=== PATIENT | male | born 1945 | race Caucasian/White ===

== ENCOUNTER → 2018-02-21 | Outpatient (CLI) | payer OTHER ==
--- NOTE | 2018-02-21 09:34 | US ---
EXAMINATION TYPE: US abdomen complete DATE OF EXAM: 02/21/2018 COMPARISON: NONE CLINICAL HISTORY: I71.4 ABDOMINAL AORTIC ANEURYSM. EXAM MEASUREMENTS: Liver Length: 17.0 cm Gallbladder Wall: 0.2 cm CBD: 0.5 cm Spleen: 8.2 cm Right Kidney: 10.7 x 5.0 x 4.8 cm Left Kidney: 10.6 x 5.2 x 5.9 cm Aorta prox: 2.1cm Aorta mid: 2.3cm Aorta dist: 4.5 x 4.3 x4.2cm AAA Bifurcation: obscured by bowel gas Patient is of large body habitus with large abdomen. Pancreas: Obscured by bowel gas Liver: Increased attenuation, decreased visualization of vessels suggestive of fatty infiltrate, upp er limits of normal in size Gallbladder: wnl Evidence for sonographic Fuller's sign: CBD: wnl Spleen: wnl Right Kidney: No hydronephrosis or masses seen Left Kidney: No hydronephrosis or masses seen Upper IVC: wnl Abd Aorta: AAA measuring 4.5cm The liver is homogenous. The intrahepatic portion of the IVC and proximal abdominal aorta are within normal limits. No aortic aneurysm measuring 4.5 cm. There is no evidence of cholelithiasis. Common bile duct is unremarkable. The visualized portions of the pancreas are homogenous. The spleen is u nremarkable. Kidneys are symmetric and free of hydronephrosis. No renal lesions are seen. IMPRESSION: 1. Abdominal aortic aneurysm as noted. No discrete complicating factor at this time.
== END | disposition home or self-care (01) ==
LOC: RADUSWWP 08:19
DX: I71.4 Abdominal aortic aneurysm, without rupture (principal)
CPT/HCPCS: 76700

== ENCOUNTER 2018-05-10 15:26 | Inpatient (IN) | payer OTHER, MEDICARE ==
[2018-05-10] MEDS ORDERED: NITROGLYCERIN SL TABS 0.4 MG TAB SUBLINGUAL PRN ×2 (15:39→18:04)
[2018-05-10] MEDS ORDERED: HEPARIN SODIUM,PORCINE 5,000 UNIT/ML 1 ML VIAL IV STA (15:39)
[2018-05-10] MEDS ORDERED: SODIUM CHLORIDE 0.9% 500 ML IV STA (15:39)
[2018-05-10] MEDS ORDERED: ASPIRIN 81 MG PO STA (15:39)
[2018-05-10] MEDS ORDERED: ATORVASTATIN 80 MG TAB PO STA (15:42)
--- NOTE | 2018-05-10 15:48 | ED ---
Chest Pain HPI - General Chief Complaint: Chest Pain Stated Complaint: CHEST PAIN Time Seen by Provider: 05/10/18 15:36 Source: patient, EMS Mode of arrival: EMS Limitations: no limitations - History of Present Illness Initial Comments: 72 years old male was mowing his lawn today chest pain started about 2-1/2 [place] he still has a chest pain he saying there is a 3/10, he denies any shortness of breath no fever no chills he is not coughing any phlegm chest pain started after he was done mowing his lawn he said he is a type II diabetic he denies any history of heart disease prior. - Related Data Home Medications Medication Instructions Recorded Confirmed Aspirin EC [Ecotrin] 81 mg PO DAILY 07/16/15 07/16/15 Previous Rx's Medication Instructions Recorded Naproxen Sodium 550 mg PO Q12HR #30 tab 05/11/15 Aspirin 325 mg PO DAILY #30 tab 07/19/15 HYDROcodone/APAP 7.5-325MG [[place] 1 - 2 each PO Q6HR PRN #90 tab 07/19/15 7.5-325] Allergies Allergy/AdvReac Type Severity Reaction Status Date / Time No Known Allergies Allergy Verified 07/16/15 12:42 Review of Systems ROS Statement: Those systems with pertinent positive or pertinent negative responses have been documented in the HPI. ROS Other: All systems not noted in ROS Statement are negative. EKG Findings - EKG Comments: EKG Findings:: EKG is normal sinus ventricular rate is 75 TN interval is an 58 QRS duration is 84 QT/QTc is 390/[address] depression in lead 2 and 3 as well as aVF noticed Elisa in V1 and V2 V3 V4 and V5 significant findings are in V1 and V2 and V3 Past Medical History Past Medical History: Diabetes Mellitus Additional Past Medical History / Comment(s): Possible Type II DM, aortic aneursym, 4.5 cm. History of Any Multi-Drug Resistant Organisms: None Reported Past Surgical History: Hernia Repair Past Psychological History: No Psychological Hx Reported Smoking Status: Current every day smoker Past Alcohol Use History: None Reported Past Drug Use History: None Reported General Exam - General Exam Comments Initial Comments: General: The patient is awake and alert, in no distress, and does not appear acutely ill. Skin: Skin is warm and dry and no rashes or lesions are noted. Eye: Pupils are equal, round and reactive to light, extra-ocular movements are intact; there is normal conjunctiva bilaterally. Ears, nose, mouth and throat: There are moist mucous membranes and no oral lesions. Neck: The neck is supple, there is no tenderness or JVD. Cardiovascular: There is a regular rate and rhythm. No murmur, rub or gallop is appreciated. Respiratory: To auscultation bilateral, decrease breath sounds Gastrointestinal: Soft, non-distended, non-tender abdomen without masses or organomegaly noted. There is no rebound or guarding present. Bowel sounds are unremarkable. Back: There is no tenderness to palpation in the midline. There is no obvious deformity. Musculoskeletal: Normal ROM, no tenderness, There is no pedal edema. There is no calf tenderness or swelling. No cords were appreciated. Neurological: CN II-XII intact, Cranial nerves III through XII are intact. There are no obvious motor or sensory deficits. Coordination appears grossly intact. Speech is normal. Psychiatric: Cooperative, appropriate mood & affect, normal judgment. Limitations: no limitations Course Vital Signs 05/10/18 05/10/18 15:27 15:39 Temperature 97.5 F L Pulse Rate 76 81 Respiratory 18 18 Rate Blood Pressure 90/56 102/56 O2 Sat by Pulse 97 96 Oximetry Patient will be admitted to Dr. Gurrola service cardiology is on board, he just lateral to the Ditcher Operator Critical Care Time Total Critical Care Time: 30 Critical Care Time: EKG was done within minutes of his arrival, I have seen EKG one now transmitted by EMS, that EKG also had a STEMI consistent changes patient was medicated after speaking with the Dr. Ruddy nair in the other medications patient is hemodynamically stable and he be heading to Ditcher Operator soon as a [address] Disposition Clinical Impression: STEMI (ST elevation myocardial infarction) Disposition: ADMITTED IP TO THIS HOSP Condition: Good Referrals: Rudolph Ceja MD [Primary Care Provider] - 1-2 days
[2018-05-10] MEDS ORDERED: ACETAMINOPHEN TAB 325 MG TAB PO PRN (15:51)
[2018-05-10] MEDS ORDERED: MORPHINE SULFATE 2 MG/ML SYRINGE IV PRN (15:51)
[2018-05-10] MEDS ORDERED: NALOXONE 0.4 MG/ML 1 ML VIAL IV PRN (15:51)
[2018-05-10 15:56] LABS: HCT 47.5 % (39.0-53.0); HGB 16.1 gm/dL (13.0-17.5); MCH 30.6 pg (25.0-35.0); MCHC 33.8 g/dL (31.0-37.0); MCV 90.6 fL (80.0-100.0); Mean Platelet Volume 7.2; Platelet Count 256 k/uL (150-450); RBC 5.24 m/uL (4.30-5.90); RDW 13.1 % (11.5-15.5); WBC 14.8 k/uL (3.8-10.6)
[2018-05-10] MEDS ORDERED: HYDROcodone/APAP 7.5-325MG 1 EACH TAB PO PRN (15:57)
--- NOTE | 2018-05-10 15:58 | XR ---
EXAMINATION TYPE: XR chest 1V portable DATE OF EXAM: 05/10/2018 COMPARISON: NONE HISTORY: Chest pain today. TECHNIQUE: Single AP portable frontal upright view of the chest is obtained. FINDINGS: There are reticular interstitial changes seen bilaterally. There is more focal opacity in the left lung base. No large pleural effusion or pneumothorax is seen. Somewhat low lung volumes are present. The cardiac silhouette size is within normal limits. The osseous structures are intact. IMPRESSION: Favor chronic reticular interstitial changes over edema. Developing atelectasis and/or i nfiltrate left lung base is felt present. Correlation with old outside x-ray would be beneficial. Con benzene washer progress two-view chest x-ray.
[2018-05-10] MEDS ORDERED: LIDOCAINE 1% INJ 10MG/ML (20 ML MDV) ONE (16:01)
[2018-05-10 16:02] LABS: Albumin 3.8 g/dL (3.5-5.0); Calcium 9.2 mg/dL (8.4-10.2); Potassium 4.3 mmol/L (3.5-5.1); Total Bilirubin 0.5 mg/dL (0.2-1.3); Total Protein 6.4 g/dL (6.3-8.2)
[2018-05-10] MEDS ORDERED: LIDOCAINE 1% INJ 10MG/ML (20 ML MDV) SQ ONE (16:04)
--- NOTE | 2018-05-10 16:04 | P.CRDCN ---
History of Present Illness Consult date: 05/10/18 Requesting physician: Carline Denton Reason for Consult (text): Anterior lateral STEMI Chief complaint: Chest pain History of present illness: This is a pleasant 72-year-old gentleman with history of nicotine dependence, type 2 diabetes, not currently on medication, hyperlipidemia, not currently on medication, denies any hypertension, presented to the hospital around 3:30 in the afternoon today. He states that 2 hours before his arrival here he developed severe midsternal chest pressure and heaviness with associated shortness of breath. The patient was given a sublingual nitroglycerin on arrival here with some relief of his discomfort, he was still rating it as 6 at the time of my arrival. His initial EKG showed a normal sinus rhythm with ST elevation in the anterior lateral leads and noted ST depression in the inferior leads. Patient was given aspirin, Lipitor 80, and a bolus of IV heparin. He was advised to undergo cardiac catheterization emergently, the risks and the benefits were explained to him in detail and he was willing to proceed. He stated that he has no ALLERGIES. His daughter is present. Chest x-ray was performed in the emergency room, patient taken directly to the cardiac catheterization lab. Past Medical History Past Medical History: Diabetes Mellitus Additional Past Medical History / Comment(s): Possible Type II DM, aortic aneursym, 4.5 cm. History of Any Multi-Drug Resistant Organisms: None Reported Past Surgical History: Hernia Repair Past Psychological History: No Psychological Hx Reported Smoking Status: Current every day smoker Past Alcohol Use History: None Reported Past Drug Use History: None Reported Medications and Allergies Home Medications Medication Instructions Recorded Confirmed Type Naproxen Sodium 550 mg PO Q12HR #30 tab 05/11/15 07/16/15 Rx Aspirin EC [Ecotrin] 81 mg PO DAILY 07/16/15 07/16/15 History Aspirin 325 mg PO DAILY #30 tab 07/19/15 Rx HYDROcodone/APAP 7.5-325MG [[place] 1 - 2 each PO Q6HR PRN #90 tab 07/19/15 Rx 7.5-325] Allergies Allergy/AdvReac Type Severity Reaction Status Date / Time No Known Allergies Allergy Verified 07/16/15 12:42 Physical Exam Vitals: Vital Signs Temp Pulse Resp BP Pulse Ox 05/10/18 15:39 81 18 102/56 96 05/10/18 15:27 97.5 F L 76 18 90/56 97 Intake and Output 05/10/18 05/10/18 05/10/18 06:59 14:59 22:59 Other: Weight 90.718 kg PHYSICAL EXAMINATION: GENERAL: 72-year-old gentleman complaining of moderate to severe midsternal chest discomfort HEENT: Head is atraumatic, normocephalic. Pupils equal, round. Sclera anicteric. Conjunctiva are clear. Mucous membranes of the mouth are moist. Neck is supple. There is no elevated jugular venous pressure.] bruit is heard. HEART EXAMINATION: Heart S1 and S2 with soft systolic murmur is heard CHEST EXAMINATION: Lungs reveal bibasilar crackles. ABDOMEN: Soft, evidence of umbilical hernia, nontender. Bowel sounds are heard. No organomegaly noted. EXTREMITIES:1+ peripheral pulses with no evidence of peripheral edema and no calf tenderness noted. NEUROLOGIC patient is awake, alert and oriented -3. . Results 05/10/18 15:41 CBC 05/10/18 Range/Units 15:41 WBC 14.8 H (3.8-10.6) k/uL RBC 5.24 (4.30-5.90) m/uL Hgb 16.1 (13.0-17.5) gm/dL Hct 47.5 (39.0-53.0) % Plt Count 256 (150-450) k/uL Current Medications Generic Name Dose Route Start Last Admin Trade Name Freq PRN Reason Stop Dose Admin Heparin Sodium/Sodium Chloride 500 mls @ 20 mls/hr 05/10/18 15:45 25,000 unit/ Sodium Chloride IV .Q24H KELSEA Protocol Sodium Chloride 500 mls @ 999 mls/hr 05/10/18 15:39 05/10/18 15:44 Saline 0.9% IV 05/10/18 16:09 999 mls/hr .Q31M STA Administration Nitroglycerin 0.4 mg 05/10/18 15:39 Nitrostat SUBLINGUAL Q5M PRN Chest Pain Intake and Output 05/10/18 05/10/18 05/10/18 06:59 14:59 22:59 Other: Weight 90.718 kg Patient Weight 05/11/18 06:59 Weight 90.718 kg 05/10/18 15:41 EKG Interpretations (text) EKG shows normal sinus rhythm with anterior lateral ST elevation and inferior ST depression. Assessment and Plan Plan: Assessment and plan #[address] elevation myocardial infarction #2 type 2 diabetes, not currently on medications at home #3 nicotine dependence #4 hyperlipidemia, untreated Plan Patient was advised to go emergently, directly to the cardiac catheterization lab, the risks and the benefits were explained to the patient in detail. A chest x-ray was performed just prior to departure from the emergency room to the Cash Application Clerk. Patient was given aspirin, Lipitor 80, and a bolus of IV heparin. Further recommendations will be based on these findings and the patient's clinical course. DNP note has been reviewed, I agree with a documented findings and plan of care. Patient was seen and examined.
[2018-05-10] MEDS ORDERED: fentaNYL (PF) 50 MCG/ML 2 ML AMP ONE (16:06)
[2018-05-10] MEDS ORDERED: MIDAZOLAM 2 MG/2 ML VIAL ONE (16:06)
[2018-05-10] MEDS ORDERED: fentaNYL (PF) 50 MCG/ML 2 ML AMP IV ONE (16:09)
[2018-05-10] MEDS ORDERED: MIDAZOLAM 2 MG/2 ML VIAL IV ONE (16:09)
[2018-05-10] MEDS ORDERED: SODIUM CHLORIDE 0.9% 500 ML IV ONE (16:09)
[2018-05-10 16:10] LABS: Prothrombin Time 9.8 sec (9.0-12.0)
[2018-05-10 16:16] LABS: Partial Thromboplastin Time 20.8 sec (22.0-30.0)
[2018-05-10 16:18] LABS: Creatine Kinase MB 0.9 ng/mL (0.0-2.4)
[2018-05-10 16:19] LABS: Troponin I 0.148 ng/mL (0.000-0.034)
[2018-05-10] MEDS ORDERED: BIVALIRUDIN BOLUS 250 MG/50 ML IV ONE (16:29)
[2018-05-10] MEDS ORDERED: BIVALIRUDIN 250 MG in SODIUM CHLORIDE 0.9% 50 ML IV ONE ×5 (16:30→17:41)
[2018-05-10] MEDS ORDERED: NOREPINEPHRIN 4 MG-0.9% NS PMX 4 MG/250 ML ML IV ONE (16:41)
[2018-05-10] MEDS ORDERED: IOPAMIDOL-370 125ML BTL INJ ONE (16:56)
[2018-05-10] MEDS ORDERED: NITROGLYCERIN 1000MCG/10ML SYRINGE INTRACORON ONE (17:04)
[2018-05-10] MEDS ORDERED: IOPAMIDOL-370 100ML BTL INJ ONE ×3 (17:10→17:58)
[2018-05-10] MEDS ORDERED: TIROFIBAN 12.5MG-0.9% NS PMX 250 ML BAG IV ONE (17:40)
[2018-05-10] MEDS ORDERED: TICAGRELOR 90 MG TAB ONE (17:55)
[2018-05-10] MEDS ORDERED: TICAGRELOR 90 MG TAB PO ONE (17:58)
[2018-05-10] MEDS ORDERED: HEPARIN SODIUM 1,000 UN/ML (10ML VL) ONE (18:03)
[2018-05-10] MEDS ORDERED: ZOLPIDEM 5 MG TAB PO PRN (18:04)
[2018-05-10] MEDS ORDERED: MAG HYDROX/AL HYDROX/SIMETH 30 ML CUP PO PRN (18:04)
[2018-05-10] MEDS ORDERED: RX INFO: IV CONTRAST WAS GIVEN 1 EACH MISC MISCELLANE PRN (18:04)
[2018-05-10] MEDS ORDERED: ATROPINE SULFATE 0.1 MG/ML 10ML SYRINGE IV PRN (18:04)
[2018-05-10] MEDS ORDERED: SODIUM CHLORIDE 0.9% 1,000 ML IV SCH (18:15)
[2018-05-10 18:30] LABS: Glucose,Whole Blood 233 mg/dL (75-99)
[2018-05-10 19:05] VITALS: BMI 34.9
--- NOTE | 2018-05-10 20:04 | CC ---
CARDIAC CATHETERIZATION REPORT INDICATION: Acute anterior wall myocardial infarction. PROCEDURE NOTE: After obtaining informed consent, left heart catheterization, coronary angiogram are performed via the right femoral artery using standard Adolfo catheters. The patient received moderate conscious sedation and total sedation time was 24 minutes. We went thru multiple catheters to engage the right coronary artery including the right Adolfo. Kateryna and Alexys posterior and we were unable to engage the right. FINDINGS: HEMODYNAMICS: Left ventricular end-diastolic pressure is 18 mm. There is no significant gradient across the aortic valve. LEFT VENTRICULOGRAM: Left ventriculogram is not performed. ANGIOGRAPHIC DATA: 1. LEFT MAIN CORONARY ARTERY : Left main coronary artery is a normal-sized vessel and is free of stenosis. Divides into left anterior descending coronary artery and circumflex coronary artery. 2. CIRCUMFLEX CORONARY ARTERY: Gives off a large caliber OM branch that is free of stenosis. 3. LEFT ANTERIOR DESCENDING CORONARY ARTERY: The LAD has stenosis in the ostial portion which is 99% stenosis. CONCLUSIONS: 99% stenosis involving the ostial portion of the left anterior descending coronary artery. The patient's chest discomfort has improved since coming to the poultry hatchery laborer. However, still has subtle ST elevation in V1 and V2. V3 change has improved. I talked to patient at length about his treatment options including sending him to emergent bypass surgery with the attendant risks and benefits versus attempting high risk angioplasty of the ostial LAD. Dr. Zelaya, the on-call administrative support technician evaluated the angiographic data. The patient wanted us to attempt angioplasty of the ostial LAD and if unsuccessful, will proceed with bypass surgery. The right coronary artery will be engaged by Dr. Zelaya at the end of the angioplasty. MMODL / IJN: [id number] /
[2018-05-10] MEDS: HEPARIN SOD,PORK IN 0.45% NACL 25,000 UNIT in 0.45% NACL 1 500ML.BAG IV SCH (20:55)
[2018-05-10 21:02] LABS: Glucose,Whole Blood 185 mg/dL (75-99)
[2018-05-10] MEDS: TICAGRELOR 90 MG TAB PO SCH (21:28)
[2018-05-10] MEDS: ATORVASTATIN 80 MG TAB PO SCH (21:28)
[2018-05-10] MEDS: METOPROLOL TARTRATE 25 MG TAB PO SCH (21:28)
[2018-05-10] MEDS: INSULIN ASPART 100 UNIT/ML 1 ML 10 ML VIAL SQ SCH (21:31)
[2018-05-11] MEDS: NAPROXEN 250 MG TAB PO SCH ×3 (00:11→21:31)
[2018-05-11] MEDS ORDERED: NICOTINE 21MG/24HR PATCH TRANSDERM STA (01:56)
[2018-05-11 01:57] LABS: Hemoglobin A1C 7.6 % (4.0-6.0)
[2018-05-11] MEDS ORDERED: ALPRAZolam 0.25 MG TAB PO STA (01:57)
[2018-05-11 07:31] LABS: Glucose,Whole Blood 160 mg/dL (75-99)
[2018-05-11 07:44] LABS: HCT 47.1 % (39.0-53.0); HGB 16.1 gm/dL (13.0-17.5); MCH 31.2 pg (25.0-35.0); MCHC 34.3 g/dL (31.0-37.0); MCV 90.9 fL (80.0-100.0); Mean Platelet Volume 6.9; Platelet Count 224 k/uL (150-450); RBC 5.18 m/uL (4.30-5.90); RDW 13.3 % (11.5-15.5); WBC 17.7 k/uL (3.8-10.6)
[2018-05-11 10:16] LABS: Anion Gap 10 mmol/L; Blood Urea Nitrogen 14 mg/dL (9-20); Calcium 8.7 mg/dL (8.4-10.2); Carbon Dioxide 21 mmol/L (22-30); Chloride 106 mmol/L (98-107); Glucose 140 mg/dL (74-99); Phosphorus 3.3 mg/dL (2.5-4.5); Potassium 4.3 mmol/L (3.5-5.1); Sodium 137 mmol/L (137-145)
--- NOTE | 2018-05-11 10:55 | ECHOF ---
Referral Reason:stemi MEASUREMENTS -------- HEIGHT: 165.1 cm WEIGHT: 90.7 kg BP: IVSd: 1.5 cm (0.6 - 1.1) LVIDd: 5.2 cm (3.9 - 5.3) LVPWd: 1.4 cm (0.6 - 1.1) IVSs: 1.6 cm LVIDs: 3.6 cm LVPWs: 2.1 cm LAESV Index (A-L): 23.10 ml/m Ao Diam: 3.4 cm (2.0 - 3.7) LA Diam: 3.6 cm (2.7 - 3.8) MV E Yusef: 0.52 m/s MV DecT: 217 ms MV A Yusef: 0.67 m/s MV E/A Ratio: 0.78 RAP: 5.00 mmHg RVSP: 9.13 mmHg FINDINGS -------- Sinus rhythm. This was a techncally difficult study with suboptimal views, , Lumason utilized for enhancement of im ages. The left ventricular size is normal. There is mild concentric left ventricular hypertrophy. Overa ll left ventricular systolic function is moderate-severely impaired with, an EF between 30 - 35 %. Mid anterior LV wall motion is hypokinetic. Apical anterior LV wall motion is akinetic. Apical inferior LV wall motion is akinetic. Anterseptal Hypokinesis. Septal Hypokinesis [place] Hypokines is. The right ventricle is normal in size. The left atrial size is normal. The right atrial size is normal. 5.0mg OF Lumason UTLIZED: 2 OR MORE WALL SEGMENTS NOT VISUALIZED. The aortic valve was not well visualized. Mild mitral regurgitation is present. Mild tricuspid regurgitation present. Right ventricular systolic pressure is normal at < 35 mmHg. There is no evidence of pulmonary hypertension. The pulmonic valve was not well visualized. The aortic root size is normal. There is no pericardial effusion. CONCLUSIONS -------- 1. This was a techncally difficult study with suboptimal views, , Lumason utilized for enhancement of images. 2. The left ventricular size is normal. 3. There is mild concentric left ventricular hypertrophy. 4. Overall left ventricular systolic function is moderate-severely impaired with, an EF between 30 - 35 %. 5. Anterseptal Hypokinesis 6. Septal Hypokinesis 7. [place] Hypokinesis. 8. The right ventricle is normal in size. 9. The left atrial size is normal. 10. The right atrial size is normal. 11. 5.0mg OF Lumason UTLIZED: 2 OR MORE WALL SEGMENTS NOT VISUALIZED. 12. The aortic valve was not well visualized. 13. Mild mitral regurgitation is present. 14. Mild tricuspid regurgitation present. 15. Right ventricular systolic pressure is normal at < 35 mmHg. 16. There is no evidence of pulmonary hypertension. 17. The pulmonic valve was not well visualized. 18. The aortic root size is normal. 19. There is no pericardial effusion. PROGRAMMER DEVELOPER: Ermelinda Lopez RDCS
[2018-05-11 11:49] LABS: Glucose,Whole Blood 150 mg/dL (75-99)
[2018-05-11] MEDS ORDERED: IPRATROPIUM-ALBUTEROL 3 ML NEB INHALATION PRN (12:05)
--- NOTE | 2018-05-11 12:05 | P.CNPUL ---
History of Present Illness Consult date: 05/11/18 Requesting physician: Lina Gurrola Reason for consult: other (Acute ST elevation myocardial infarction) Chief complaint: Chest pain History of present illness: This is a 72-year-old white male with history of type 2 diabetes, smoker, but no documented history of COPD, positive family history of coronary artery disease, history of hypercholesterolemia, patient presented to the ER with acute substernal chest pain while he was mowing his lawn. EMS picked up the patient, and on arrival the patient was found to have acute ST elevation myocardial infarction. Patient was taken to the mini lab operator, underwent PTCA, with excellent results, admitted after cardiac cath to the ICU, hemodynamically stable, asymptomatic, no pain, no shortness of breath, no cough, no wheezing, I was asked to see the patient on consultation. Patient has been a heavy smoker over the years, presently on nicotine patch. And presently asymptomatic. Denies any headache no blurred vision no dizziness. No chest pain no cough no wheezing no nausea no vomiting no abdominal pain no melena no hematemesis is no dysuria and no frequency no urgency. Review of Systems 14 point review of systems were obtained, please refer to pertinent positives in HPI, otherwise remaining systems are negative. Past Medical History Past Medical History: Diabetes Mellitus, Hyperlipidemia Additional Past Medical History / Comment(s): Possible Type II DM, aortic aneursym, 4.5 cm. History of Any Multi-Drug Resistant Organisms: None Reported Past Surgical History: Hernia Repair, Orthopedic Surgery Additional Past Surgical History / Comment(s): 2015 knee sx Past Anesthesia/Blood Transfusion Reactions: No Reported Reaction Past Psychological History: No Psychological Hx Reported Smoking Status: Current every day smoker Past Alcohol Use History: None Reported Past Drug Use History: None Reported - Past Family History Daughter(s) Family Medical History: No Reported History Medications and Allergies Home Medications Medication Instructions Recorded Confirmed Type Aspirin EC [Ecotrin] 81 mg PO DAILY 07/16/15 05/10/18 History Atorvastatin [Lipitor] 20 mg PO HS 05/10/18 05/10/18 History Allergies Allergy/AdvReac Type Severity Reaction Status Date / Time No Known Allergies Allergy Verified 05/10/18 19:22 Physical Exam Vitals: Vital Signs Temp Pulse Resp BP Pulse Ox 05/11/18 02:00 70 24 101/60 96 05/11/18 01:00 77 22 99/62 97 06/27/18 00:00 97.5 F L 79 24 95/61 94 L 05/10/18 23:00 78 25 H 97/54 95 05/10/18 22:00 78 20 101/63 97 05/10/18 21:30 81 23 101/63 96 05/10/18 21:00 82 22 97/62 97 05/10/18 20:30 83 16 97 05/10/18 20:00 97.9 F 81 17 109/59 95 05/10/18 19:30 88 22 124/74 97 05/10/18 19:00 81 19 114/64 95 05/10/18 18:54 97.7 F 14 97 05/10/18 18:50 84 16 115/68 98 05/10/18 18:40 97.7 F 84 25 H 115/68 97 05/10/18 15:39 81 18 102/56 96 05/10/18 15:27 97.5 F L 76 18 90/56 97 Intake and Output 05/10/18 05/11/18 05/11/18 22:59 06:59 14:59 Intake Total 742.12 390 Output Total 450 Balance 292.12 390 Intake: IV 682.12 300 Sodium Chloride 0.9% 1, 300 300 000 ml @ 75 mls/hr IV . [id number] [facility] Rx#:[id number] Oral 60 90 Output: Urine 450 Other: Voiding Method Urinal Weight 95.4 kg Physical Exam revealed a 72-year-old white male in no distress. Head: Atraumatic, normocephalic. HEENT:[Neck is supple.] [No neck masses.] [No thyromegaly.] [No JVD.] Chest: [Clear throughout, no crackles, no rhonchi, no wheezes.] Cardiac Exam: [Normal S1 and S2, no S3 gallop, no murmur.] Abdomen: [Soft, nontender, no megaly, no rebound, no guarding, normal bowel sounds.] Extremities: [No clubbing, no edema, no cyanosis.] Neurological Exam: [No focal neurologic deficit. Psychiatric: Normal mood affect and mental status examination. Lymphatics: No lymphadenopathy.] Results - Laboratory Findings CBC and BMP: 05/10/18 15:41 05/10/18 15:41 PT/INR, D-dimer PT 9.8 sec (9.0-12.0) 05/10/18 15:41 INR 1.0 (<1.2) 05/10/18 15:41 Abnormal lab findings: Abnormal Labs 05/10/18 05/10/18 05/10/18 15:41 15:41 15:41 WBC 14.8 H APTT Glucose 201 H POC Glucose (mg/dL) Hemoglobin A1c Total Creatine Kinase 51 L Troponin I 0.148 H* 05/10/18 05/10/18 05/10/18 15:41 15:41 18:27 WBC APTT 20.8 L Glucose POC Glucose (mg/dL) 233 H Hemoglobin A1c 7.6 H Total Creatine Kinase Troponin I 05/10/18 05/11/18 05/11/18 21:00 07:30 11:48 WBC APTT Glucose POC Glucose (mg/dL) 185 H 160 H 150 H Hemoglobin A1c Total Creatine Kinase Troponin I - Diagnostic Findings Chest x-ray: image reviewed (Chest x-ray is suggestive of mild interstitial edema.) Assessment and Plan Assessment: Acute ST elevation myocardial infarction, patient is status post PTCA/stenting of LAD. Ischemic cardiomyopathy and LV dysfunction and ejection fraction of 30-35%. Suspect some component of COPD, however the patient is asymptomatic, he is presently on nicotine patch, will need to be evaluated on outpatient basis for underlying COPD. In the meantime we'll treat with bronchodilators on as-needed basis. I fully agree with the present treatment plan, patient could be transferred out of the ICU to a monitor bed on selective, we'll continue to follow. Time with Patient: Greater than 30
--- NOTE | 2018-05-11 12:30 | PN ---
PROGRESS NOTE This is a 72-year-old gentleman who was admitted to hospital with acute anterior wall myocardial infarction. Underwent cardiac catheterization and angioplasty of the ostial LAD. He required extensive stenting. He has been chest pain-free since admission. Denies any symptoms. He is not short of breath, stable hemodynamically. Remains in sinus rhythm. Blood pressure is normal. His white cell count is elevated, but I do not have a troponin on him from this morning. Denies chest pain. On exam, vital signs are stable. Chest exam reveals good air entry bilaterally. Heart exam reveals first and second heart sounds. No gallop. No murmur. No rub. Abdomen is soft, nontender. Exam of extremities did not reveal any edema. Peripheral pulses are felt. Groin shows mild ecchymosis without any hematoma. Foot pulses are intact. ASSESSMENT: Acute anterior wall myocardial infarction, status post catheterization and angioplasty of ostial LAD. I will review his labs once they are available. Review the echo, once it is available. MMODL / IJN: [id number] /
--- NOTE | 2018-05-11 12:49 | P.HPIM ---
History of Present Illness H&P Date: 05/11/18 This is a 72-year-old male one of Dr. Ceja with a previous medical history significant for diabetes mellitus type 2 for which she is not taking any medication at this time, hyperlipidemia, chronic tobacco use and dependence , mild COPD, patient was at home yesterday mowing his lawn when he suddenly developed to have a significant chest pressure at into the neck associated with shortness breath and a cold sweat. Immediately cold 911 and [facility] was found to have an anterior ST elevation myocardial infarction with ST elevation in V1 and V2 and V3 patient was taken emergently to the pathology laboratory aide was found to have 99% stenosis of the mid LAD for which she underwent PCI with stent placement and he was admitted to the ICU for evaluation, patient was seen in consultation by pulmonary medicine as well and the patient seems to be doing okay. Review of Systems Constitutional: Denies chills, Denies chronic headaches, Denies lethargy, Denies weight gain, Denies weight loss Eyes: denies blurred vision, denies bulging eye, denies decreased vision Ears: deny: decreased hearing Ears, nose, mouth and throat: Denies dysphagia, Denies neck lump, Denies sore throat Cardiovascular: Reports chest pain, Reports decreased exercise tolerance, Reports dyspnea on exertion, Reports shortness of breath, Denies rapid heart beat, Denies syncope Respiratory: Denies congestion, Denies home oxygen, Denies sleep apnea, Denies snoring, Denies wheezing Gastrointestinal: Denies abdominal pain, Denies BRBPR, Denies heartburn, Denies melena, Denies nausea, Denies vomiting Genitourinary: Denies dysuria, Denies nocturia, Denies polyuria Musculoskeletal: Denies myalgias Musculoskeletal: absent: ankle pain, ankle stiffness, ankle swelling, elbow pain , elbow stiffness, elbow swelling, foot pain, foot stiffness, foot swelling, hand pain, hand stiffness, hand swelling, hip pain, hip stiffness, hip swelling , knee pain, knee stiffness, knee swelling, shoulder pain, shoulder stiffness, shoulder swelling, wrist pain, wrist stiffness, wrist swelling Integumentary: Denies pruritus, Denies rash Neurological: Denies numbness, Denies weakness Psychiatric: Denies anxiety, Denies depression Endocrine: Denies fatigue, Denies weight change Past Medical History Past Medical History: Coronary Artery Disease (CAD), Diabetes Mellitus, Hyperlipidemia, Osteoarthritis (OA), Prostate Disorder Additional Past Medical History / Comment(s): Possible Type II DM, aortic aneursym, 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 History of Any Multi-Drug Resistant Organisms: None Reported Past Surgical History: Hernia Repair, Orthopedic Surgery Additional Past Surgical History / Comment(s): 2015 knee sx Past Anesthesia/Blood Transfusion Reactions: No Reported Reaction Past Psychological History: No Psychological Hx Reported Smoking Status: Current every day smoker (Patient smoked about pack every day smoked for about 35 years.) Past Alcohol Use History: None Reported Past Drug Use History: None Reported - Past Family History Daughter(s) Family Medical History: No Reported History Mother Family Medical History: Coronary Artery Disease (CAD) (Mother at age of 83 from CAD also she had trouble and competition from leg fracture.) Father Family Medical History: Cancer (Father at age of 77 from colon cancer as well as lung cancer.) Brother(s) Family Medical History: Cancer (Patient 20 brother from colon cancer.) Sister(s) Family Medical History: Cancer (Patient has 2 sisters one of them had double mastectomy due to breast cancer [place] one is alive and healthy) Medications and Allergies Home Medications Medication Instructions Recorded Confirmed Type Aspirin EC [Ecotrin] 81 mg PO DAILY 07/16/15 05/10/18 History Atorvastatin [Lipitor] 20 mg PO HS 05/10/18 05/10/18 History Allergies Allergy/AdvReac Type Severity Reaction Status Date / Time No Known Allergies Allergy Verified 05/10/18 19:22 Physical Exam Vitals: Vital Signs Temp Pulse Resp BP Pulse Ox 05/11/18 02:00 70 24 101/60 96 05/11/18 01:00 77 22 99/62 97 05/11/18 00:00 97.5 F L 79 24 95/61 94 L 05/10/18 23:00 78 25 H 97/54 95 05/10/18 22:00 78 20 101/63 97 05/10/18 21:30 81 23 101/63 96 05/10/18 21:00 82 22 97/62 97 05/10/18 20:30 83 16 97 05/10/18 20:00 97.9 F 81 17 109/59 95 05/10/18 19:30 88 22 124/74 97 05/10/18 19:00 81 19 114/64 95 05/10/18 18:54 97.7 F 14 97 05/10/18 18:50 84 16 115/68 98 05/10/18 18:40 97.7 F 84 25 H 115/68 97 05/10/18 15:39 81 18 102/56 96 05/10/18 15:27 97.5 F L 76 18 90/56 97 Intake and Output 05/10/18 05/11/18 05/11/18 22:59 06:59 14:59 Intake Total 742.12 390 Output Total 450 Balance 292.12 390 Intake: IV 682.12 300 Sodium Chloride 0.9% 1, 300 300 000 ml @ 75 mls/hr IV . [id number] [facility] Rx#:[id number] Oral 60 90 Output: Urine 450 Other: Voiding Method Urinal Weight 95.4 kg - Constitutional General appearance: average body habitus, no acute distress - EENT Eyes: anicteric sclerae, EOMI, PERRLA, no ptosis, normal appearance ENT: hearing grossly normal, NA/AT, normal oropharynx, no thrush Ears: bilateral: normal - Neck Neck: no lymphadenopathy, normal ROM, no rigidity, no stridor, no thyromegaly Carotids: bilateral: upstroke normal Thyroid: bilateral: normal size - Respiratory Respiratory: bilateral: diminished, negative: dullness, rales, rhonchi, wheezing , prolonged expiration, prolonged inspiration - Cardiovascular Rhythm: regular Heart sounds: normal: S1, S2 Abnormal Heart Sounds: systolic murmur, S3 Gallop - Gastrointestinal General gastrointestinal: normal bowel sounds, soft, no splenomegaly, no tenderness, no umbilical hernia, ventral hernia - Integumentary Integumentary: normal, normal turgor - Neurologic Neurologic: CNII-XII intact - Musculoskeletal Musculoskeletal: gait normal, strength equal bilaterally - Psychiatric Psychiatric: A&O x's 3, appropriate affect, intact judgment & insight Results CBC & Chem 7: 05/10/18 15:41 05/10/18 15:41 Labs: Abnormal Lab Results - Last 24 Hours (Table) 05/10/18 05/10/18 05/10/18 Range/Units 15:41 15:41 15:41 WBC 14.8 H (3.8-10.6) k/uL APTT (22.0-30.0) sec Glucose 201 H (74-99) mg/dL POC Glucose (mg/dL) (75-99) mg/dL Hemoglobin A1c (4.0-6.0) % Total Creatine Kinase 51 L (55-170) U/L Troponin I 0.148 H* (0.000-0.034) ng/mL 05/10/18 05/10/18 05/10/18 Range/Units 15:41 15:41 18:27 WBC (3.8-10.6) k/uL APTT 20.8 L (22.0-30.0) sec Glucose (74-99) mg/dL POC Glucose (mg/dL) 233 H (75-99) mg/dL Hemoglobin A1c 7.6 H (4.0-6.0) % Total Creatine Kinase (55-170) U/L Troponin I (0.000-0.034) ng/mL 05/10/18 05/11/18 05/11/18 Range/Units 21:00 07:30 11:48 WBC (3.8-10.6) k/uL APTT (22.0-30.0) sec Glucose (74-99) mg/dL POC Glucose (mg/dL) 185 H 160 H 150 H (75-99) mg/dL Hemoglobin A1c (4.0-6.0) % Total Creatine Kinase (55-170) U/L Troponin I (0.000-0.034) ng/mL Thrombosis Risk Factor Assmnt - DVT/VTE Prophylaxis DVT/VTE Prophylaxis: Mechanical Prophylaxis ordered - Choose All That Apply Any of the Below Risk Factors Present?: Yes Each Factor Represents 1 point: Obesity (BMI >25) Other Risk Factors: Yes Each Risk Factor Represents 2 Points: Age 61-74 years Other congenital or acquired thrombophilia - If yes, enter type in comment: No Thrombosis Risk Factor Assessment Total Risk Factor Score: 3 Thrombosis Risk Factor Assessment Level: Moderate Risk Assessment and Plan Assessment: Assessment and plan: 1. Acute anterior ST elevation myocardial infarction status post left heart catheterization with PCI of the LAD. Continue patient on Lopressor 25 mg twice every day, lisinopril 2.5 mg orally once every day, aspirin 81 mg once every day , and Brilinta 90 mg orally twice every day, Lipitor 80 mg orally once every day. 2. Ischemic cardiomyopathy. Continue patient on Lopressor 25 mg orally twice every day and lisinopril 2.5 mg orally once every day. 3. Hyperlipidemia. Continue patient on Lipitor 80 mg orally once every day. 4. Diabetes mellitus type 2. Patient will need to follow-up with us as an outpatient check his hemoglobin A1c and manage as an outpatient. 5. Hypertension. Continue with Lopressor 25 mg twice every day as well as lisinopril 2.5 mg orally once every day. 6. Chronic tobacco use and dependence. Smoking cessation and counseling patient was started on nicotine patch, follow-up with [facility] as an outpatient. 7. DVT prophylaxis. Early ambulation. 8. GI prophylaxis. Continue patient on PPI. 9. Admit to inpatient. Estimate a length of stay 2 midnights. 10. Full code.
--- NOTE | 2018-05-11 13:05 | PTCA ---
PERCUTANEOUSTRANS CORORONARY ANGIOGRAPHY DATE OF PROCEDURE: 05/10/2018 PERFORMING PHYSICIAN: Dawson Zelaya MD, wound care rn. PROCEDURE PERFORMED: 1. Successful stenting of the ostial/proximal left anterior descending artery using 3.5 x 18 mm Xience LIAT drug-eluting stent as well as 3.5 x 8 mm Xience LIAT with good angiographic results. 2. Successful stenting of the mid LAD using 2.75 x 23 mm Xience LIAT with good angiographic results. INDICATION: This is a very pleasant 72-year-old gentleman who sees Dr. Ceja in the office as an outpatient with hypertension and dyslipidemia who presented to the emergency room complaining of chest discomfort with EKG finding showing acute anterior ST-elevation myocardial infarction. The patient underwent an emergent heart catheterization by Dr. Padilla and was found to have critical disease involving the ostial left anterior descending artery. APPROACH: Right common femoral artery. COMPLICATION: None. LEVEL OF SEDATION: Moderate. PROCEDURE DESCRIPTION: After diagnostic heart catheterization was performed by Dr. Padilla and after reviewing the angiogram, we decided to pursue with intervention on the LAD. Anticoagulation was initiated using Angiomax. Subsequently I took a JL3.5 guiding catheter and the left main was engaged. I attempted wiring the LAD using a short whisper wire, but I was unable to cross the critical disease in the ostial LAD and as a matter of fact we lost the flow in the LAD. At that point, I tried using a long whisper wire with the backup support of 2.0 x 12 mm balloon and with that I was able to cross the acute total occlusion. After that, I did advance a wire to the distal left anterior descending artery. Subsequently I did PTCA ballooning using 2.5 x 12 mm balloon. After that, I deployed in the ostial/proximal left anterior descending artery a 3 5 x 18 mm Xience LIAT where the stent was positioned under fluoroscopy guidance and deployed under its nominal pressure. The following angiogram showed good angiographic results in the ostial/proximal LAD with no evidence of any plaque shift noted. Distal to the stent in the ostial/proximal LAD, there was a tight lesion which is likely representing a shift from that ostial LAD. I did do balloon angioplasty on that segment using 2.5 mm balloon. I attempted advancing a 2.75 x 23 mm Xience LIAT to that segment, but I was unable in spite of using double wire with whisper and run-through wire and also I tried using the GuideLiner, which did not help as well. After that I was able to get the stent to that area using whisper wire with a amparo wire which was Ironman which I wired the LAD with. I deployed the second stent under its nominal pressure, which was about 10 mm for 30 seconds. The following angiogram showed excellent angiographic results in that mid LAD. I took a picture of the ostial proximal LAD after that and it did reveal what it seems to be an area of concern involving the ostial LAD by the takeoff from the left main. I decided to cover that with a stent, where I did deploy a 3.5 x 8 mm stent and then I did post dilate that stent using 3.75 mm balloon. The following angiogram showed good angiographic results in that area without perforation with possible non-flow limiting dissection and the procedure was completed without any complication. No on the left circumflex was noted. POSTPROCEDURE MANAGEMENT: 1. Maximize medical treatment. 2. Risk factors modifications. 3. Follow up with the patient. MMODL / IJN: [id number] /
[2018-05-11] MEDS: INSULIN ASPART 100 UNIT/ML 1 ML 10 ML VIAL SQ SCH ×4 (14:15→21:32)
[2018-05-11] MEDS: ASPIRIN 81 MG PO SCH (14:16)
[2018-05-11] MEDS: LISINOPRIL 2.5 MG TAB PO SCH (14:16)
[2018-05-11] MEDS: METOPROLOL TARTRATE 25 MG TAB PO SCH ×2 (14:16→21:32)
[2018-05-11] MEDS: NICOTINE 21MG/24HR PATCH TRANSDERM SCH (14:17)
[2018-05-11] MEDS: TICAGRELOR 90 MG TAB PO SCH ×2 (14:17→21:31)
[2018-05-11 17:21] LABS: Glucose,Whole Blood 128 mg/dL (75-99)
[2018-05-11] MEDS: HEPARIN SOD,PORK IN 0.45% NACL 25,000 UNIT in 0.45% NACL 1 500ML.BAG IV SCH (18:53)
[2018-05-11 21:03] LABS: Glucose,Whole Blood 142 mg/dL (75-99)
[2018-05-11] MEDS: ATORVASTATIN 80 MG TAB PO SCH (21:32)
[2018-05-12 05:39] LABS: Basophils # (A) 0.1 k/uL (0-0.2); Basophils % (A) 0 %; Eosinophils # (A) 0.3 k/uL (0-0.7); Eosinophils % (A) 2 %; HCT 47.1 % (39.0-53.0); HGB 15.3 gm/dL (13.0-17.5); Lymphocytes # (A) 2.9 k/uL (1.0-4.8); Lymphocytes % (A) 19 %; MCH 29.5 pg (25.0-35.0); MCHC 32.5 g/dL (31.0-37.0); MCV 90.7 fL (80.0-100.0); Mean Platelet Volume 7.1; Monocytes # (A) 1.2 k/uL (0-1.0); Monocytes % (A) 8 %; Neutrophils # (A) 10.6 k/uL (1.3-7.7); Neutrophils % (A) 69 %; Platelet Count 219 k/uL (150-450); RBC 5.19 m/uL (4.30-5.90); RDW 13.2 % (11.5-15.5); WBC 15.4 k/uL (3.8-10.6)
[2018-05-12 05:49] LABS: Calcium 8.8 mg/dL (8.4-10.2); Magnesium 2.2 mg/dL (1.6-2.3); Phosphorus 3.8 mg/dL (2.5-4.5); Potassium 5.5 mmol/L (3.5-5.1)
[2018-05-12 07:11] LABS: Glucose,Whole Blood 130 mg/dL (75-99)
[2018-05-12] MEDS: INSULIN ASPART 100 UNIT/ML 1 ML 10 ML VIAL SQ SCH ×4 (09:25→20:57)
[2018-05-12] MEDS: NICOTINE 21MG/24HR PATCH TRANSDERM SCH (09:26)
[2018-05-12] MEDS: ASPIRIN 81 MG PO SCH (09:26)
[2018-05-12] MEDS: NAPROXEN 250 MG TAB PO SCH ×2 (09:26→20:59)
[2018-05-12] MEDS: TICAGRELOR 90 MG TAB PO SCH ×2 (09:26→20:59)
--- NOTE | 2018-05-12 11:03 | PN ---
PROGRESS NOTE This is a 72-year-old gentleman who was admitted to hospital with anterior wall myocardial infarction. Underwent cardiac catheterization and angioplasty of LAD. This morning he is doing well and is free of symptoms. Denies chest pain or difficulty in breathing. Blood pressures are somewhat marginal. Currently on aspirin, Lipitor, Zestril, Lopressor, along with Brilinta. PHYSICAL EXAM: He is comfortable at rest. Vital signs are stable. Blood pressure is varying between 80-110 systolic. There is no jugular venous distention. Carotid upstroke is normal. There is no bruit. Chest exam reveals good air entry bilaterally. Heart exam reveals first and second heart sounds. No gallop. Abdomen is soft, nontender. Exam of extremities did not reveal any edema. Peripheral pulses are palpable. His groin is free of bleeding, bruit, hematoma. Patient has a NicoDerm patch on. I am going to start him on subcu heparin at this time. ASSESSMENT: 1. Acute anterior wall myocardial infarction, status post catheterization and angioplasty of left anterior descending artery. 2. Ischemic cardiomyopathy. PLAN: Will decrease the dose of Lopressor to 12.5 b.i.d., continue the lisinopril at 2.5. Continue the statin, transfer the patient to [facility]. MMODL / IJN: [id number] /
[2018-05-12 11:56] LABS: Glucose,Whole Blood 134 mg/dL (75-99)
[2018-05-12] MEDS: HEPARIN SODIUM,PORCINE 5,000 UNIT/ML 1 ML VIAL SQ SCH ×3 (12:03→22:02)
[2018-05-12] MEDS: LISINOPRIL 2.5 MG TAB PO SCH (12:03)
[2018-05-12] MEDS: METOPROLOL TARTRATE 12.5 MG TAB PO SCH ×2 (12:04→20:59)
--- NOTE | 2018-05-12 12:10 | P.PN ---
Subjective This is a 72-year-old male one of Dr. Ceja with a previous medical history significant for diabetes mellitus type 2 for which she is not taking any medication at this time, hyperlipidemia, chronic tobacco use and dependence , mild COPD, patient was at home yesterday mowing his lawn when he suddenly developed to have a significant chest pressure at into the neck associated with shortness breath and a cold sweat. Immediately cold 911 and [facility] have an anterior ST elevation myocardial infarction with ST elevation in V1 and V2 and V3 patient was taken emergently to the label printer was found to have 99% stenosis of the mid LAD for which she underwent PCI with stent placement and he was admitted to the ICU for evaluation, patient was seen in consultation by pulmonary medicine as well and the patient seems to be doing okay. 05/12: Patient evaluated today in the ICU status post stent placement of the LAD. Patient reports he is doing well today, denies any shortness of breath or chest pain. He is ambulating in the hallways without difficulty. Blood pressure was a little low this morning at 83/48, metoprolol decreased to 12.5 mg twice a day, he denies any dizziness. Objective - Vital Signs Vital signs: Vital Signs Temp 97.9 F 05/12/18 04:00 Pulse 69 05/12/18 07:00 Resp 12 05/12/18 07:00 BP 83/48 05/12/18 07:00 Pulse Ox 95 05/12/18 07:00 Intake & Output 05/11/18 05/12/18 05/12/18 18:59 06:59 18:59 Intake Total 1220 Output Total 900 400 0 Balance 320 -400 0 Weight 95.4 kg 92.3 kg Intake: IV 0 Sodium Chloride 0.9% 1, 0 000 ml @ 75 mls/hr IV . [id number] [facility] Rx#:[id number] Oral 1220 Output: Urine 900 400 0 Other: Voiding Method Urinal Urinal ABP, PAP, CO, CI - Last Documented Arterial Blood Pressure 145/70 - Exam - Constitutional General appearance: average body habitus, no acute distress - EENT Eyes: anicteric sclerae, EOMI, PERRLA, no ptosis, normal appearance ENT: hearing grossly normal, NA/AT, normal oropharynx, no thrush Ears: bilateral: normal - Neck Neck: no lymphadenopathy, normal ROM, no rigidity, no stridor, no thyromegaly Carotids: bilateral: upstroke normal Thyroid: bilateral: normal size - Respiratory Respiratory: bilateral: diminished, negative: dullness, rales, rhonchi, wheezing , prolonged expiration, prolonged inspiration - Cardiovascular Rhythm: regular Heart sounds: normal: S1, S2 Abnormal Heart Sounds: systolic murmur, S3 Gallop - Gastrointestinal General gastrointestinal: normal bowel sounds, soft, no splenomegaly, no tenderness, no umbilical hernia, positive for ventral hernia - Integumentary Integumentary: normal, normal turgor - Neurologic Neurologic: CNII-XII intact - Musculoskeletal Musculoskeletal: gait normal, strength equal bilaterally - Psychiatric Psychiatric: A&O x's 3, appropriate affect, intact judgment & insight - Labs CBC & Chem 7: 05/12/18 04:57 05/12/18 04:57 Labs: Abnormal Lab Results - Last 24 Hours (Table) 05/11/18 05/11/18 05/11/18 Range/Units 04:32 04:32 09:25 WBC 17.7 H (3.8-10.6) k/uL Neutrophils # (1.3-7.7) k/uL Monocytes # (0-1.0) k/uL Potassium (3.5-5.1) mmol/L Carbon Dioxide 21 L (22-30) mmol/L Glucose 140 H (74-99) mg/dL POC Glucose (mg/dL) (75-99) mg/dL Troponin I 37.800 H* (0.000-0.034) ng/mL 05/11/18 05/11/18 05/11/18 Range/Units 11:48 17:20 21:00 WBC (3.8-10.6) k/uL Neutrophils # (1.3-7.7) k/uL Monocytes # (0-1.0) k/uL Potassium (3.5-5.1) mmol/L Carbon Dioxide (22-30) mmol/L Glucose (74-99) mg/dL POC Glucose (mg/dL) 150 H 128 H 142 H (75-99) mg/dL Troponin I (0.000-0.034) ng/mL 05/12/18 05/12/18 05/12/18 Range/Units 04:57 04:57 04:57 WBC 15.4 H (3.8-10.6) k/uL Neutrophils # 10.6 H (1.3-7.7) k/uL Monocytes # 1.2 H (0-1.0) k/uL Potassium 5.5 H (3.5-5.1) mmol/L Carbon Dioxide (22-30) mmol/L Glucose 130 H (74-99) mg/dL POC Glucose (mg/dL) (75-99) mg/dL Troponin I 17.900 H* (0.000-0.034) ng/mL 05/12/18 Range/Units 07:08 WBC (3.8-10.6) k/uL Neutrophils # (1.3-7.7) k/uL Monocytes # (0-1.0) k/uL Potassium (3.5-5.1) mmol/L Carbon Dioxide (22-30) mmol/L Glucose (74-99) mg/dL POC Glucose (mg/dL) 130 H (75-99) mg/dL Troponin I (0.000-0.034) ng/mL Assessment and Plan Plan: 1. Acute anterior ST elevation myocardial infarction status post left heart catheterization with PCI of the LAD. Continue patient on Lopressor 12.5 mg twice every day, lisinopril 2.5 mg orally once every day, aspirin 81 mg once every day, and Brilinta 90 mg orally twice every day, Lipitor 80 mg orally once every day. 2. Ischemic cardiomyopathy. Continue patient on Lopressor 12.5 mg orally twice every day and lisinopril 2.5 mg orally once every day. 3. Hyperlipidemia. Continue patient on Lipitor 80 mg orally once every day. 4. Diabetes mellitus type 2. Patient will need to follow-up with us as an outpatient check his hemoglobin A1c and manage as an outpatient. 5. Hypertension. Continue with Lopressor 25 mg twice every day as well as lisinopril 2.5 mg orally once every day. 6. Chronic tobacco use and dependence. Smoking cessation and counseling patient was started on nicotine patch, follow-up with [facility] as an outpatient. 7. DVT prophylaxis. Early ambulation. 8. GI prophylaxis. Continue patient on PPI. 9. Admit to inpatient. Estimate a length of stay 2 midnights. 10. Full code. The above impression and plan of care have been discussed and directed by signing physician. Kia Donis nurse practitioner acting as scribe for signing physician.
--- NOTE | 2018-05-12 12:24 | P.PN ---
Subjective Progress Note Date: 05/12/18 Principal diagnosis: Acute ST elevation myocardial infarction This is a 72-year-old white male with history of type 2 diabetes, smoker, but no documented history of COPD, positive family history of coronary artery disease, history of hypercholesterolemia, patient presented to the ER with acute substernal chest pain while he was mowing his lawn. EMS picked up the patient, and on arrival the patient was found to have acute ST elevation myocardial infarction. Patient was taken to the laborer [facility] processing, underwent PTCA, with excellent results, admitted after cardiac cath to the ICU, hemodynamically stable, asymptomatic, no pain, no shortness of breath, no cough, no wheezing, I was asked to see the patient on consultation. Patient has been a heavy smoker over the years, presently on nicotine patch. And presently asymptomatic. Denies any headache no blurred vision no dizziness. No chest pain no cough no wheezing no nausea no vomiting no abdominal pain no melena no hematemesis is no dysuria and no frequency no urgency. Patient was reevaluated today on 05/12/2018, seems to be doing well, asymptomatic , no issues overnight, hemodynamically stable. Ration denies any shortness of breath no cough no wheezing and no chest pain. Labs were reviewed. Relatively normal CBC except for WBC count of 15.4, hemoglobin is 15.3, and the relatively normal electrolytes except for slight hyperkalemia. Renal profile is normal. Troponin was noted to be elevated. Objective - Vital Signs Vital signs: Vital Signs Temp 98.0 F 05/12/18 08:00 Pulse 79 05/12/18 12:00 Resp 20 05/12/18 12:00 BP 103/53 05/12/18 12:00 Pulse Ox 98 05/12/18 12:00 Intake & Output 05/11/18 05/12/18 05/12/18 18:59 06:59 18:59 Intake Total 1220 720 Output Total 900 400 250 Balance 320 -400 470 Weight 95.4 kg 92.3 kg 92.3 kg Intake: IV 0 Sodium Chloride 0.9% 1, 0 000 ml @ 75 mls/hr IV . [id number] [facility] Rx#:[id number] Oral 1220 720 Output: Urine 900 400 250 Other: Voiding Method Urinal Urinal Urinal # Voids 1 # Bowel Movements 1 ABP, PAP, CO, CI - Last Documented Arterial Blood Pressure 145/70 - Exam Physical Exam revealed a 72-year-old white male in no distress. Head: Atraumatic, normocephalic. HEENT:[Neck is supple.] [No neck masses.] [No thyromegaly.] [No JVD.] Chest: [Clear throughout, no crackles, no rhonchi, no wheezes.] Cardiac Exam: [Normal S1 and S2, no S3 gallop, no murmur.] Abdomen: [Soft, nontender, no megaly, no rebound, no guarding, normal bowel sounds.] Extremities: [No clubbing, no edema, no cyanosis.] Neurological Exam: [No focal neurologic deficit. Psychiatric: Normal mood affect and mental status examination. Lymphatics: No lymphadenopathy.] - Labs CBC & Chem 7: 05/12/18 04:57 05/12/18 04:57 Labs: Abnormal Lab Results - Last 24 Hours (Table) 05/11/18 05/11/18 05/11/18 Range/Units 04:32 04:32 09:25 WBC 17.7 H (3.8-10.6) k/uL Neutrophils # (1.3-7.7) k/uL Monocytes # (0-1.0) k/uL Potassium (3.5-5.1) mmol/L Carbon Dioxide 21 L (22-30) mmol/L Glucose 140 H (74-99) mg/dL POC Glucose (mg/dL) (75-99) mg/dL Troponin I 37.800 H* (0.000-0.034) ng/mL 05/11/18 05/11/18 05/12/18 Range/Units 17:20 21:00 04:57 WBC (3.8-10.6) k/uL Neutrophils # (1.3-7.7) k/uL Monocytes # (0-1.0) k/uL Potassium (3.5-5.1) mmol/L Carbon Dioxide (22-30) mmol/L Glucose (74-99) mg/dL POC Glucose (mg/dL) 128 H 142 H (75-99) mg/dL Troponin I 17.900 H* (0.000-0.034) ng/mL 05/12/18 05/12/18 05/12/18 Range/Units 04:57 04:57 07:08 WBC 15.4 H (3.8-10.6) k/uL Neutrophils # 10.6 H (1.3-7.7) k/uL Monocytes # 1.2 H (0-1.0) k/uL Potassium 5.5 H (3.5-5.1) mmol/L Carbon Dioxide (22-30) mmol/L Glucose 130 H (74-99) mg/dL POC Glucose (mg/dL) 130 H (75-99) mg/dL Troponin I (0.000-0.034) ng/mL 05/12/18 Range/Units 11:54 WBC (3.8-10.6) k/uL Neutrophils # (1.3-7.7) k/uL Monocytes # (0-1.0) k/uL Potassium (3.5-5.1) mmol/L Carbon Dioxide (22-30) mmol/L Glucose (74-99) mg/dL POC Glucose (mg/dL) 134 H (75-99) mg/dL Troponin I (0.000-0.034) ng/mL Assessment and Plan Assessment: Acute ST elevation myocardial infarction, patient is status post PTCA/stenting of LAD. Ischemic cardiomyopathy and LV dysfunction and ejection fraction of 30-35%. Suspect some component of COPD, however the patient is asymptomatic, he is presently on nicotine patch, will need to be evaluated on outpatient basis for underlying COPD. In the meantime we'll treat with bronchodilators on as-needed basis. Recommendation: Continue present treatment plan, patient could be transferred out of the ICU, and possibly consider discharge planning in the next 24 hours. Will follow on when necessary basis. Time with Patient: Greater than 30
[2018-05-12 16:35] LABS: Glucose,Whole Blood 110 mg/dL (75-99)
[2018-05-12 20:49] LABS: Glucose,Whole Blood 115 mg/dL (75-99)
[2018-05-12] MEDS: ATORVASTATIN 80 MG TAB PO SCH (20:59)
[2018-05-13 05:59] LABS: Glucose,Whole Blood 140 mg/dL (75-99)
[2018-05-13] MEDS: INSULIN ASPART 100 UNIT/ML 1 ML 10 ML VIAL SQ SCH ×4 (06:39→20:32)
[2018-05-13] MEDS: TICAGRELOR 90 MG TAB PO SCH ×2 (10:36→21:01)
[2018-05-13] MEDS: HEPARIN SODIUM,PORCINE 5,000 UNIT/ML 1 ML VIAL SQ SCH ×3 (10:36→22:46)
[2018-05-13] MEDS: NAPROXEN 250 MG TAB PO SCH ×2 (10:36→21:01)
[2018-05-13] MEDS: ASPIRIN 81 MG PO SCH (10:37)
[2018-05-13] MEDS: LISINOPRIL 2.5 MG TAB PO SCH (10:37)
[2018-05-13] MEDS: METOPROLOL TARTRATE 12.5 MG TAB PO SCH ×2 (10:37→21:01)
[2018-05-13] MEDS: NICOTINE 21MG/24HR PATCH TRANSDERM SCH (10:37)
[2018-05-13 11:37] LABS: Glucose,Whole Blood 134 mg/dL (75-99)
--- NOTE | 2018-05-13 11:40 | P.PN ---
Subjective Progress Note Date: 05/13/18 This is a pleasant 72-year-old gentleman with history of nicotine dependence, type 2 diabetes, not currently on medication, hyperlipidemia, not currently on medication, denies any hypertension, presented to the hospital around 3:30 in the afternoon today. He states that 2 hours before his arrival here he developed severe midsternal chest pressure and heaviness with associated shortness of breath. The patient was given a sublingual nitroglycerin on arrival here with some relief of his discomfort, he was still rating it as 6 at the time of my arrival. His initial EKG showed a normal sinus rhythm with ST elevation in the anterior lateral leads and noted ST depression in the inferior leads. Patient was given aspirin, Lipitor 80, and a bolus of IV heparin. He was advised to undergo cardiac catheterization emergently, the risks and the benefits were explained to him in detail and he was willing to proceed. He stated that he has no ALLERGIES. His daughter is present. Chest x-ray was performed in the emergency room, patient taken directly to the cardiac catheterization lab. 05/13/2018 Patient was taken to the cardiac catheterization lab where he underwent successful stenting of the proximal and mid LAD. Echocardiogram with Doppler study was performed which revealed an ejection fraction of 30-35%, anteroseptal , septal, and apical hypokinesia noted. Patient was seen and examined this morning, denies any chest pain or difficulty in breathing. He has been up ambulating without any difficulty today. He has been encouraged to continue ambulating today, plan for possible discharge home in the morning. The patient will go home on Brilinta for one month, then start on Plavix 75 mg daily Objective - Vital Signs Vital signs: Vital Signs Temp 97.0 F L 05/13/18 08:00 Pulse 78 05/13/18 08:00 Resp 18 05/13/18 08:00 BP 127/61 05/13/18 08:00 Pulse Ox 100 05/13/18 08:00 Intake & Output 05/12/18 05/13/18 05/13/18 18:59 06:59 18:59 Intake Total 1210 240 Output Total 550 Balance 660 240 Weight 92.3 kg 91.9 kg Intake: Oral 1210 240 Output: Urine 550 Other: Voiding Method Urinal Toilet Toilet # Voids 1 1 # Bowel Movements 1 ABP, PAP, CO, CI - Last Documented Arterial Blood Pressure 145/70 - Exam PHYSICAL EXAMINATION: GENERAL: 72-year-old gentleman in no apparent distress at the time of my examination. HEENT: Head is atraumatic, normocephalic. Pupils equal, round. Sclera anicteric. Conjunctiva are clear. Mucous membranes of the mouth are moist. Neck is supple. There is no elevated jugular venous pressure.] No carotid bruit is heard. HEART EXAMINATION: Heart S1, S2 normal. No murmur or gallop heard. CHEST EXAMINATION: Lungs are clear to auscultation and precussion. No chest wall tenderness is noted on palpation or with deep breathing. ABDOMEN: Soft, nontender. Bowel sounds are heard. No organomegaly noted. EXTREMITIES: 2+ peripheral pulses with no evidence of peripheral edema and no calf tenderness noted. Right groin soft, no evidence of any hematoma. NEUROLOGIC patient is awake, alert and oriented ?-3. . - Labs CBC & Chem 7: 05/12/18 04:57 05/12/18 04:57 Labs: Abnormal Lab Results - Last 24 Hours (Table) 05/12/18 05/12/18 05/12/18 Range/Units 11:54 16:15 20:47 POC Glucose (mg/dL) 134 H 110 H 115 H (75-99) mg/dL 05/13/18 Range/Units 05:58 POC Glucose (mg/dL) 140 H (75-99) mg/dL Assessment and Plan Plan: Assessment and plan #[address] elevation myocardial infarction, status post stenting of the proximal and mid LAD #2 type 2 diabetes, not currently on medications at home #3 nicotine dependence #4 hyperlipidemia, untreated #5 ischemic cardiomyopathy with documented ejection fraction of 30-35% Plan We will continue the patient on aspirin 81 mg daily, Lipitor 80 mg daily, lisinopril 2.5 mg daily, metoprolol 12-1/2 mg by mouth twice a day, nicotine patch, Brilinta 90 mg by mouth twice a day for one month, then the patient will take Plavix 75 mg daily, sublingual nitroglycerin as needed for chest pain. Follow-up appointment will be made with Dr. Padilla in the office next in the afternoon. DNP note has been reviewed, I agree with a documented findings and plan of care. Patient was seen and examined.
--- NOTE | 2018-05-13 11:44 | P.PN ---
Subjective Progress Note Date: 05/13/18 This is a 72-year-old male one of Dr. Ceja with a previous medical history significant for diabetes mellitus type 2 for which she is not taking any medication at this time, hyperlipidemia, chronic tobacco use and dependence , mild COPD, patient was at home yesterday mowing his lawn when he suddenly developed to have a significant chest pressure at into the neck associated with shortness breath and a cold sweat. Immediately cold 911 and the patient was brought into the ER at [facility] was found to have an anterior ST elevation myocardial infarction with ST elevation in V1 and V2 and V3 patient was taken emergently to the cath lab technologist was found to have 99% stenosis of the mid LAD for which she underwent PCI with stent placement and he was admitted to the ICU for evaluation, patient was seen in consultation by pulmonary medicine as well and the patient seems to be doing okay. 05/12: Patient evaluated today in the ICU status post stent placement of the LAD. Patient reports he is doing well today, denies any shortness of breath or chest pain. He is ambulating in the hallways without difficulty. Blood pressure was a little low this morning at 83/48, metoprolol decreased to 12.5 mg twice a day, he denies any dizziness. 05/13: Patient's pain level today denies any chest pain or soreness with his moving around, he denies any nausea vomiting or diarrhea. Objective - Vital Signs Vital signs: Vital Signs Temp 97.0 F L 05/13/18 08:00 Pulse 78 05/13/18 08:00 Resp 18 05/13/18 08:00 BP 127/61 05/13/18 08:00 Pulse Ox 100 05/13/18 08:00 Intake & Output 05/12/18 05/13/18 05/13/18 18:59 06:59 18:59 Intake Total 1210 240 Output Total 550 Balance 660 240 Weight 92.3 kg 91.9 kg Intake: Oral 1210 240 Output: Urine 550 Other: Voiding Method Urinal Toilet Toilet # Voids 1 1 # Bowel Movements 1 ABP, PAP, CO, CI - Last Documented Arterial Blood Pressure 145/70 - Exam - Exam - Constitutional General appearance: average body habitus, no acute distress - EENT Eyes: anicteric sclerae, EOMI, PERRLA, no ptosis, normal appearance ENT: hearing grossly normal, NA/AT, normal oropharynx, no thrush Ears: bilateral: normal - Neck Neck: no lymphadenopathy, normal ROM, no rigidity, no stridor, no thyromegaly Carotids: bilateral: upstroke normal Thyroid: bilateral: normal size - Respiratory Respiratory: bilateral: diminished, negative: dullness, rales, rhonchi, wheezing , prolonged expiration, prolonged inspiration - Cardiovascular Rhythm: regular Heart sounds: normal: S1, S2 Abnormal Heart Sounds: systolic murmur, S3 Gallop - Gastrointestinal General gastrointestinal: normal bowel sounds, soft, no splenomegaly, no tenderness, no umbilical hernia, positive for ventral hernia - Integumentary Integumentary: normal, normal turgor - Neurologic Neurologic: CNII-XII intact - Musculoskeletal Musculoskeletal: gait normal, strength equal bilaterally - Psychiatric Psychiatric: A&O x's 3, appropriate affect, intact judgment & insight - Labs CBC & Chem 7: 05/12/18 04:57 05/12/18 04:57 Labs: Abnormal Lab Results - Last 24 Hours (Table) 05/12/18 05/12/18 05/12/18 Range/Units 11:54 16:15 20:47 POC Glucose (mg/dL) 134 H 110 H 115 H (75-99) mg/dL 05/13/18 Range/Units 05:58 POC Glucose (mg/dL) 140 H (75-99) mg/dL Assessment and Plan Assessment: Assessment and Plan Plan: 1. Acute anterior ST elevation myocardial infarction status post left heart catheterization with PCI of the LAD. Continue patient on Lopressor 12.5 mg twice every day, lisinopril 2.5 mg orally once every day, aspirin 81 mg once every day, and Brilinta 90 mg orally twice every day, Lipitor 80 mg orally once every day. 2. Ischemic cardiomyopathy. Continue patient on Lopressor 12.5 mg orally twice every day and lisinopril 2.5 mg orally once every day. 3. Hyperlipidemia. Continue patient on Lipitor 80 mg orally once every day. 4. Diabetes mellitus type 2. Patient will need to follow-up with us as an outpatient check his hemoglobin A1c and manage as an outpatient. 5. Hypertension. Continue with Lopressor 25 mg twice every day as well as lisinopril 2.5 mg orally once every day. 6. Chronic tobacco use and dependence. Smoking cessation and counseling patient was started on nicotine patch, follow-up with [facility] as an outpatient. 7. DVT prophylaxis. Early ambulation. 8. GI prophylaxis. Continue patient on PPI.
[2018-05-13 16:54] LABS: Glucose,Whole Blood 87 mg/dL (75-99)
[2018-05-13 20:21] LABS: Glucose,Whole Blood 112 mg/dL (75-99)
[2018-05-13] MEDS: ATORVASTATIN 80 MG TAB PO SCH (21:01)
[2018-05-14 00:35] VITALS: RESP 16
[2018-05-14 05:56] LABS: Glucose,Whole Blood 114 mg/dL (75-99)
[2018-05-14] MEDS: INSULIN ASPART 100 UNIT/ML 1 ML 10 ML VIAL SQ SCH ×2 (05:59→12:11)
[2018-05-14 08:51] VITALS: TEMP 97.7
[2018-05-14] MEDS: HEPARIN SODIUM,PORCINE 5,000 UNIT/ML 1 ML VIAL SQ SCH (08:56)
[2018-05-14] MEDS: NICOTINE 21MG/24HR PATCH TRANSDERM SCH (08:59)
[2018-05-14] MEDS: NAPROXEN 250 MG TAB PO SCH (08:59)
[2018-05-14] MEDS: ASPIRIN 81 MG PO SCH (09:00)
[2018-05-14] MEDS: METOPROLOL TARTRATE 12.5 MG TAB PO SCH (09:00)
[2018-05-14] MEDS: TICAGRELOR 90 MG TAB PO SCH (09:00)
[2018-05-14] MEDS: LISINOPRIL 2.5 MG TAB PO SCH (09:00)
--- NOTE | 2018-05-14 09:09 | P.PN ---
Subjective Progress Note Date: 05/14/18 Principal diagnosis: Acute coronary event This is a pleasant 72-year-old gentleman who presented to the hospital with a chest discomfort and was diagnosed with acute anterior ST elevation myocardial infarction and underwent a heart catheterization and stenting of the ostial/ proximal LAD. On follow-up with him today, he denies having any chest pain or discomfort or shortness of breath or dizziness or lightheadedness or syncope. The echocardiogram revealed impaired LV function with an ejection fraction of 35 % with anterolateral septal hypokinesia. From the cardiovascular standpoint overview, the patient can be discharged home. Objective - Vital Signs Vital signs: Vital Signs Temp 97.7 F 05/14/18 08:00 Pulse 78 05/14/18 08:00 Resp 16 05/14/18 08:00 BP 112/56 05/14/18 08:00 Pulse Ox 98 05/14/18 08:00 Intake & Output 05/13/18 05/14/18 05/14/18 18:59 06:59 18:59 Intake Total 960 0 180 Output Total 350 Balance 960 -350 180 Weight 91.5 kg Intake: Oral 960 0 180 Output: Urine 350 Other: Voiding Method Toilet Toilet Toilet # Voids 3 1 1 # Bowel Movements 1 ABP, PAP, CO, CI - Last Documented Arterial Blood Pressure 145/70 - Constitutional General appearance: Present: no acute distress - Respiratory Respiratory: bilateral: CTA - Cardiovascular Rhythm: regular Heart sounds: normal: S1, S2 - Labs CBC & Chem 7: 05/12/18 04:57 05/12/18 04:57 Labs: Abnormal Lab Results - Last 24 Hours (Table) 05/13/18 05/13/18 05/14/18 Range/Units 11:19 20:20 05:55 POC Glucose (mg/dL) 134 H 112 H 114 H (75-99) mg/dL Assessment and Plan Assessment: Assessment #1 acute coronary event #2 impaired LV function #3 multiple comorbid conditions Plan #1 the patient can be discharged home #2 the patient need to follow-up with Dr. Padilla as an outpatient.
[2018-05-14 12:02] LABS: Glucose,Whole Blood 96 mg/dL (75-99)
[2018-05-14 13:08] VITALS: BP 112/57; PULSE 65
== END 2018-05-14 14:49 | disposition home or self-care (01) | DRG 247 ==
LOC: EC 15:26 → 6ICU 15:54 → 6SEL 05-12 12:28
PROVIDERS: ADMIT Internal Medicine; ATTEND Internal Medicine
PROC: B2111ZZ Fluoroscopy of Multiple Coronary Arteries using Low Osmolar Contrast (ICD-10-PCS; 2018-05-10)
PROC: 027036Z Dilation of Coronary Artery, One Artery with Three Drug-eluting Intraluminal Devices, Percutaneous Approach (ICD-10-PCS; principal; 2018-05-10 15:46)
PROC: 4A023N7 Measurement of Cardiac Sampling and Pressure, Left Heart, Percutaneous Approach (ICD-10-PCS; 2018-05-10 15:46)
DX: I21.09 ST elevation (STEMI) myocardial infarction involving other coronary artery of anterior wall (principal); I25.10 Atherosclerotic heart disease of native coronary artery without angina pectoris; I25.5 Ischemic cardiomyopathy; I10 Essential (primary) hypertension; E87.5 Hyperkalemia; I71.9 Aortic aneurysm of unspecified site, without rupture; E11.9 Type 2 diabetes mellitus without complications; N42.9 Disorder of prostate, unspecified; M19.90 Unspecified osteoarthritis, unspecified site; F17.210 Nicotine dependence, cigarettes, uncomplicated; E78.00 Pure hypercholesterolemia, unspecified; Z82.49 Family history of ischemic heart disease and other diseases of the circulatory system; Z79.899 Other long term (current) drug therapy; Z79.82 Long term (current) use of aspirin; Z80.3 Family history of malignant neoplasm of breast; Z80.0 Family history of malignant neoplasm of digestive organs; Z80.1 Family history of malignant neoplasm of trachea, bronchus and lung; Z71.6 Tobacco abuse counseling; Z79.1 Long term (current) use of non-steroidal anti-inflammatories (NSAID)
CPT/HCPCS: 36415; 71045; 80048; 80053; 82550; 82553; 83036; 83735; 84100; 84484; 85025; 85027; 85610; 85730; 93005; 93306; 93458; 94760; 96374; 99291

== ENCOUNTER → 2019-12-12 | Outpatient (CLI) | payer MEDICARE ==
[2019-12-12 13:16] LABS: African American GFR (CKD) >90 (>60 ml/min/1.73 sqM); Blood Urea Nitrogen 20 mg/dL (9-20); Non-African American GFR(CKD) 87 (>60 ml/min/1.73 sqM)
--- NOTE | 2019-12-12 15:04 | CT ---
EXAMINATION TYPE: CT angio abdomen DATE OF EXAM: 12/12/2019 COMPARISON: None HISTORY: AAA CT DLP: 665.9 mGycm CONTRAST: CTA thoracic and abdominal aorta with 3-D reconstruction is performed and without and with IV Contras t, patient injected with 100 mL of Isovue 370. Contrast CTA of the abdominal aorta was performed from the lung apex through the base of the pelvis. 3-D reconstruction imaging obtained at a separate workstation. CONTRAST CT ABDOMEN AND PELVIS ABDOMINAL AORTA: Infrarenal abdominal aortic aneurysm measuring 4.8 cm AP dimension. There is mural t hrombus noted. No dissection. Iliac vessels are symmetric and patent. Major branch vessels are pat ent. LIVER/GB- No significant abnormality is seen. PANCREAS- No significant abnormality is seen. SPLEEN- No significant abnormality is seen. ADRENALS- No significant abnormality is seen. KIDNEYS/BLADDER- No significant abnormality is seen. BOWEL- No Significant abnormality GENITAL ORGANS: No gross abnormality seen. LYMPH NODES- No greater than 1cm abdominal or pelvic lymph nodes areappreciated. OSSEOUS STRUCTURES- No significant abnormality is seen. OTHER-miranda mild fat-containing anterior abdominal wall hernia hernia opening of 5.6 cm. IMPRESSION- 1. Infrarenal abdominal aortic aneurysm. No complicating factors noted.
== END | disposition home or self-care (01) ==
LOC: RADCTMAIN 12:36
PROVIDERS: ATTEND Internal Medicine Cardiovascular Disease
DX: I71.4 Abdominal aortic aneurysm, without rupture (principal)
CPT/HCPCS: 82565; 84520; 74175; 36415; Q9967

== ENCOUNTER → 2025-01-17 | Outpatient (CLI) | payer MEDICARE, OTHER ==
--- NOTE | 2025-01-17 09:53 | CTL ---
EXAMINATION TYPE: CT Low Dose Lung DATE OF EXAM: 01/17/2025 9:35 AM COMPARISON: None. CLINICAL INDICATION: Male, 79 years old with history of Z12.2 LUNG CA SCR F17.210 CURRENT SMOKER; smo ker, history of tobacco use. TECHNIQUE: Multiple axial non-contrast scans were obtained from approximately the lung apices through the upper abdomen. Coronal and sagittal reformatted images were obtained. Low dose technique was uti lized. MIP were created on a separate workstation and submitted for review. CT DLP: 99.4 mGycm, Automated exposure control for dose reduction was used. CT Contrast: Contrast used: None Oral contrast used: None FINDINGS: Lack of intravenous contrast and low dose technique limits the evaluation of the vascular and soft ti ssue structures. LUNGS: No evidence of pulmonary fibrosis. No evidence of focal consolidation, pneumothorax or pleural effusion. Centrilobular emphysema changes. Nodules: RUL: None. RML: None. RLL: None. DG: None. LLL: None. AIRWAY: Patent and unremarkable. HEART: Size within normal limits.Increased density within the coronary arteries may relate to scleros is versus vascular stents. No significant coronary artery calcifications. MEDIASTINUM: No gross evidence of adenopathy. VASCULATURE: No aortic aneurysm. MUSCULOSKELETAL: No acute osseous abnormalities SOFT TISSUES/LYMPH NODES: Unremarkable. LOWER NECK: No significant findings. UPPER ABDOMEN: No significant findings. IMPRESSION: 1. No clinically significant pulmonary nodules. 2. Mild emphysema. CT LUNG RAD AND CT CHEST RECOMMENDATION: Lung-Rad 2 Benign Appearance or Behavior: Continue annual sc reening with LDCT in 12 months. S Modifier (other clinically significant findings): None Recommend smoking cessation (if current smoker), or continuation of smoking cessation (if prior smoke r). Annual screening for lung cancer with low-dose computed tomography is recommended in adults ages 55 to 77 years who have a 30 pack-year smoking history and currently smoke or have quit within the pa st 15 years. Screening should be discontinued once a person has not smoked for 15 years or develops a health problem that substantially limits life expectancy or the ability or willingness to have curat glynn lung surgery. Lung rads 2021 [email or web address] [email or web address], , 01/17/2025 9:50 AM
== END | disposition home or self-care (01) ==
LOC: RADCTMAIN 08:50
PROVIDERS: ATTEND Family Medicine
DX: Z12.2 Encounter for screening for malignant neoplasm of respiratory organs (principal); F17.210 Nicotine dependence, cigarettes, uncomplicated; J43.2 Centrilobular emphysema
CPT/HCPCS: 71271